=== PATIENT | female | born 1990 | race Two or more races ===

== ENCOUNTER 2020-06-23 00:33 | Emergency (ER) | payer MEDICAID ==
[~2020-06-23] VITALS: Ht 162.6 cm; Wt 49.9 kg
[2020-06-23 00:43] VITALS: BP 129/86
--- NOTE | 2020-06-23 00:47 | NUR ---
C/O RIGHT SIDED NECK PAIN 3x HOURS TIRE MOUNTER. PATIENT STATES THAT SHE WAS SPEAKING WITH HER FRIEND WHEN SHE TURNED HER NECK ABRUPTLY AND FELT PAIN. PATIENT IS AAOX4. NO SOB. BREATHING EVENLY AND UNLABORED ON ROOM AIR.
--- NOTE | 2020-06-23 00:54 | NUR ---
Patient discharged to home in stable condition. Written and verbal after care instructions given. Patient verbalizes understanding of instruction.
== END 2020-06-23 00:57 | disposition home or self-care (01) ==
LOC: ER 00:35
DX: M54.2 Cervicalgia (principal)